=== PATIENT | female | born 1980 | race Caucasian/White ===

== ENCOUNTER 2016-11-04 12:09 | Emergency (ER) | payer OTHER ==
[~2016-11-04] VITALS: Ht 170.2 cm; Wt 116.2 kg
[~2016-11-04 12:09] MED LIST: AMOXICILLIN500 M1 PO; CIPRO500 MG PO; PRENATAL1 EACH PO; STOOL SOFTENER50 MG PO; ULTRAM50 MG PO; ZOLOFT50 MG PO
[2016-11-04 14:24] VITALS: BP 128/86
== END 2016-11-04 14:27 | disposition home or self-care (01) ==
LOC: EME 12:09
PROC: 3E0234Z Introduction of Serum, Toxoid and Vaccine into Muscle, Percutaneous Approach (ICD-10-PCS; principal; 2016-11-04)
DX: S60.021A Contusion of right index finger without damage to nail, initial encounter (principal); S00.12XA Contusion of left eyelid and periocular area, initial encounter; S60.411A Abrasion of left index finger, initial encounter; S00.511A Abrasion of lip, initial encounter; Y04.2XXA Assault by strike against or bumped into by another person, initial encounter; Z23 Encounter for immunization; F17.200 Nicotine dependence, unspecified, uncomplicated
CPT/HCPCS: 73130; 99281; 99284